=== PATIENT | female | born 1990 | race African-American/Black ===

== ENCOUNTER 2020-01-09 17:09 | Emergency (ER) | payer OTHER ==
[~2020-01-09] VITALS: Ht 154.9 cm; Wt 63.9 kg
[2020-01-09] MEDS ORDERED: lidocaine patch (17:21)
[2020-01-09] MEDS ORDERED: prenatal vit (17:21)
--- NOTE | 2020-01-09 20:19 | REPVR ---
PROCEDURE INFORMATION: Exam: CT Head Without Contrast Exam date and time: 01/09/2020 8:00 PM Age: 29 years old Clinical indication: Pain; Headache; Additional info: Trauma TECHNIQUE: Imaging protocol: Computed tomography of the head without contrast. Radiation optimization: All CT scans at this facility use at least one of these dose optimization techniques: automated exposure control; mA and/or kV adjustment per patient size (includes targeted exams where dose is matched to clinical indication); or iterative reconstruction. COMPARISON: No relevant prior studies available. FINDINGS: Brain: Normal. No hemorrhage. Unremarkable white matter. No mass effect. Cerebral ventricles: No ventriculomegaly. Bones/joints: Unremarkable. No acute fracture. Paranasal sinuses: Visualized sinuses are unremarkable. No fluid levels. Mastoid air cells: Visualized mastoid air cells are well aerated. Auditory system: Retained cerumen in both external auditory canals. Soft tissues: Unremarkable. IMPRESSION: No acute findings. Electronically signed by: Sheldon Hernandez On 01/09/2020 20:18:41 PM
[2020-01-09 20:32] VITALS: BP 133/79
== END 2020-01-09 20:43 | disposition home or self-care (01) ==
LOC: M ED 17:09
DX: S09.90XA Unspecified injury of head, initial encounter (principal); W22.8XXA Striking against or struck by other objects, initial encounter; Y92.9 Unspecified place or not applicable; Y99.9 Unspecified external cause status; Z88.6 Allergy status to analgesic agent; Z88.8 Allergy status to other drugs, medicaments and biological substances; Z79.899 Other long term (current) drug therapy

== ENCOUNTER 2020-05-13 15:31 | Emergency (ER) | payer OTHER ==
[~2020-05-13] VITALS: Ht 154.9 cm; Wt 65.8 kg
[~2020-05-13 15:31] MED LIST: lidocaine patch; prenatal vit
--- OUTSIDE RECORDS SUMMARY | 2020-05-13 15:37 | CCD | Continuity of Care Document ---
Author Author Lorin BAKER M.D. Organization Unknown Address [address] [place] [address] Phone [phone] Care Team Providers Care Bowling Ball Engraver Name Role Phone Roberto Merritt DO AUT[facility] [phone] Problems Active Problems Provider Date Migraine Uma Baker M.D. Onset: 02/27/2020 Postconcussion syndrome Uma Baker M.D. Onset: 020 Social History Type Date Description Comments Sex Unknown Tobacco Use Start: Unknown Patient has never smoked Allergies, Adverse Reactions, Alerts Active Allergies Reaction Severity Comments Date Ketorolac Tromethamine 02/26 Demerol 02/27/2020 Dilaudid 02/27/2020 Tramadol 02/27/2020 Triptans 02/27/2020 Dihydroergotamine 02/27/2020 Medications Active Medications SIG Qnty Indications Ordering Provide r Date Prednisone 20mg Tablets take 60mg x2days, then 40mg x2 day, then 20mg x2days, then 10mg x2days. then stop. 13tahelen Baker M.D. 02/27/2020 Amitriptyline HCL 25mg Tablets Take one tablet at bedtime, start with 1/2 tab at bedtime for 1 week then take 1 tab po at bedtime. 30tabs Uma Baker M.D. 02/27/2020 Immunizations Description No Information Available Vital Signs Date Vital Result Comment 02/27/2020 9:55am Respiratory Rate 12 /min Height 61 inches 5'1" Weight 134.00 lb BMI (Body Mass Index) 25.3 kg/m2 [place] Body Weight 105 lb Results Description No Information Available Procedures Description No Information Available Medical Devices Description No Information Available Encounters Type Date Location Provider Dx Diagnosis Office Visit 02/27/2020 9:30a Main office - [place] Uma varela M.D. G43.719 Chronic migraine w/o aura, intractable, w/o stat migr G43.409 Hemiplegic migraine, not int ractable, w/o status migrainosus Assessments Date Code Description Provider 02/27/2020 G43.719 Chronic migraine wit hout aura, intractable, without status migrainosus Uma Baker M.D. 02/27/2020 G43.409 Hemiplegic migraine, not intractable, without status migrainosus Uma Baker M.D. Plan of Treatment Future Appointment(s):* 05/29/2020 2:00 pm - Uma Baker M.D. at Main office - [place] Functional Status Description No Information Available Mental Status Description No Information Available Referrals Refer to Dr Reason for Referral Status Appt Date Uma Baker M.D. Created [address] [place] [address] [phone]
--- OUTSIDE RECORDS SUMMARY | 2020-05-13 15:37 | CCD | Continuity of Care Document ---
Author Author Lorin BAKER M.D. Organization Unknown Address [address] [place] [address] Phone [phone] Care Team Providers Care Insurance Sales Professional Name Role Phone Roberto Merritt DO AUTM [phone] Problems Active Problems Provider Date Migraine Uma [...] lb BMI (Body Mass Index) 25.3 kg/m2 [place] Body Weight 105 lb Results Description No Information Available Procedures Description No Information Available Medical Devices Description No Information Available Encounters Description No Information Available Assessments Date Code Description Provider 02/27/2020 G43.719 Chronic migraine wit hout aura, intractable, without status migrainosus Uma Baker M.D. 02/27/2020 G43.409 Hemiplegic migraine, not intractable, without status migrainosus Uma Baker M.D. Plan of Treatment Future Appointment(s):* 05/29/2020 2:00 pm - Uma Baker M.D. at Main office - [place] Functional Status Description No Information Available Mental Status Description No Information Available Referrals Description No Information Available
--- OUTSIDE RECORDS SUMMARY | 2020-05-13 15:37 | CCD ---
Author Author [facility] Organization [facility] Address Unknown Phone Unavailable Care Team Providers Care Supervisor Case Loading Name Role Phone Sharon Zaidi MD Unavailable Unavailable Sharon Zaidi MD Unavailable Unavailable Sharon Zaidi MD Unavailable Unavailable Sharon Zaidi MD Unavailable Unavailable Sharon Zaidi MD Unavailable Unavailable Sharon Zaidi MD Unavailable Unavailable Sharon Zaidi MD Unavailable Unavailable Sharno Zaidi MD Unavailable Unavailable Sharon Zaidi MD Unavailable Unavailable Sharon Zaidi MD Unavailable Unavailable Sharon Zaidi MD Unavailable Unavailable Sharon Zaidi MD Unavailable Unavailable Sharon Zaidi MD Unavailable Unavailable Sharon Zaidi MD Unavailable Unavailable Sharon Zaidi MD Unavailable Unavailable Sharon Zaidi MD Unavailable Unavailable Sharon Zaidi MD Unavailable Unavailable Sharon Zaidi MD Unavailable Unavailable Sharon Zaidi MD Unavailable Unavailable Sharon Zaidi MD Unavailable Unavailable Sharon Zaidi MD Unavailable Unavailable Sharon Zaidi MD Unavailable Unavailable Sharon Zaidi MD Unavailable Unavailable Sharon Zaidi MD Unavailable Unavailable Sharon Zaidi MD Unavailable Unavailable Sharon Zaidi MD Unavailable Unavailable Sharon Zaidi MD Unavailable Unavailable Sharon Zaidi MD Unavailable Unavailable Sharon Zaidi MD Unavailable Unavailable Sharon Zaidi MD Unavailable Unavailable Sharon Zaidi MD Unavailable Unavailable Sharon Zaidi MD Unavailable Unavailable Sharon Zaidi MD Unavailable Unavailable Sharon Zaidi MD Unavailable Unavailable Sharon Zaidi MD Unavailable Unavailable Sharon Zaidi MD Unavailable Unavailable Sharon Zaidi MD Unavailable Unavailable Sharon Zaidi MD Unavailable Unavailable Sharon Zaidi MD Unavailable Unavailable Sharon Zaidiah Unavailable Unavailable Sharon Zaidi MD Unavailable Unavailable Sharon Zaidi MD Unavailable Unavailable Sharon Zaidi MD Unavailable Unavailable Sharon Zaidi MD Unavailable Unavailable Sharon Zaidi MD Unavailable Unavailable Sharon Zaidi MD Unavailable Unavailable Sharon Zaidi MD Unavailable Unavailable Sharon Zaidi MD Unavailable Unavailable Sharon Zaidi MD Unavailable Unavailable Sharon Zaidi MD Unavailable Unavailable Sharon Zaidi MD Unavailable Unavailable Sharon Zaidi MD Unavailable Unavailable Sharon Zaidi MD Unavailable Unavailable Sharon Zaidi MD Unavailable Unavailable Sharon Zaidi MD Unavailable Unavailable Sharon Zaidi MD Unavailable Unavailable Sharon Zaidi MD Unavailable Unavailable Sharon Zaidi MD Unavailable Unavailable Sharon Zaidi MD Unavailable Unavailable Sharon Zaidi MD Unavailable Unavailable Sharon Zaidi MD Unavailable Unavailable Sharon Zaidi MD Unavailable Unavailable Sharon Zaidi MD Unavailable Unavailable Sharon Zaidi MD Unavailable Unavailable Sharon Zaidi MD Unavailable Unavailable Sharon Zaidi MD Unavailable Unavailable Sharon Zaidi MD Unavailable Unavailable Sharon Zaidi MD Unavailable Unavailable Sharon Zaidi MD Unavailable Unavailable Sharon Zaidi MD Unavailable Unavailable Sharon Zaidi MD Unavailable Unavailable Sharon Zaidi MD Unavailable Unavailable Sharon Zaidi MD Unavailable Unavailable Sharon Zaidi MD Unavailable Unavailable Sharon Zaidi MD Unavailable Unavailable Sharon Zaidi MD Unavailable Unavailable Re-disclosure Warning The records that you are about to access may contain information from federally-assisted alcohol or drug abuse programs. If such information is present, then the following federally mandated warning applies: This information has been disclosed to you from records protected by federal confidentiality rules (42 CFR part 2). The federal rules prohibit you from making any further disclosure of this information unless further disclosure is expressly permitted by the written consent of the person to whom it pertains or as otherwise permitted by 42 CFR part 2. A general authorization for the release of medical or other information is NOT sufficient for this purpose. The Federal rules restrict any use of the information to criminally investigate or prosecute any alcohol or drug abuse patient.The records that you are about to access may contain highly sensitive health information, the redisclosure of which is protected by Article 27-F of the [facility] Public Health law. If you continue you may have access to information: Regarding HIV / AIDS; Provided by facilities licensed or operated by the [facility] Office of Mental Health; or Provided by the [facility] Office for People With Developmental Disabilities. If such information is present, then the following [facility] mandated warning applies: This information has been disclosed to you from confidential records which are protected by state law. State law prohibits you from making any further disclosure of this information without the specific written consent of the person to whom it pertains, or as otherwise permitted by law. Any unauthorized further disclosure in violation of state law may result in a fine or mcfp sentence or both. A general authorization for the release of medical or other information is NOT sufficient authorization for further disc losure. Encounters Encounter Providers Location Date Indications Data Source(s ) Outpatient Attender: Uma Zaidi MD [facility] office [facility] 02/27/2020 08:30:00 AM EST [facility] ([facility], ) Medications Medication Brand Name Start Date Product Form Dose Route Admi nistrative Instructions Pharmacy Instructions Status Indications Reaction Description Data Source(s) Prednisone 20 MG Oral Tablet Prednisone 02/27/2020 12:00:00 AM EST active [facility] ([facility], ) Amitriptyline Hydrochloride 25 MG Oral Tablet Amitriptyline HCL 02/27/2020 12:00:00 AM EST active [facility] ([facility], ) Insurance Providers Payer name Policy type / Coverage type Policy ID Covered democrat ID Covered democrat's relationship to rangel Policy Rangel Plan Information [facility] ACTIVE DUTY [id number] SP [id number] [employer] [facility] REG O [id number] S [id number] Problems, Conditions, and Diagnoses Code Display Name Description Problem Type Effective Dates Data Source(s) 63374658 Postconcussion syndrome Postconcussion syndrome Proble m 02/27/2020 12:00:00 AM EST [facility] ([facility], ) [id number] Migraine Migraine Problem 02/27/2020 12:00:00 AM ES T [facility] ([facility], ) Vital Signs ID Date Data Source UNK Name Value Range Interpretation Code Description Data Source(s) [place] body weight 105 [lb_av] 105 [lb_av] [facility] ([facility], ) Body mass index (BMI) [Ratio] 25.3 kg/m2 25.3 k g/m2 [facility] ([facility], ) Body weight 134.00 [lb_av] 134.00 [lb_av] [facility] ([facility] ) Body height 61 [in_i] 61 [in_i] [facility] ([facility], ) 5'1" Respiratory rate 12 /min 12 /min [facility] ( [facility], )
--- OUTSIDE RECORDS SUMMARY | 2020-05-13 16:58 | CCD ---
Author Author [facility] Organization [facility] Address Unknown Phone Unavailable Care Team Providers Care Kennel Staff Member Name Role Phone Sharon Zaidi MD Unavailable [...] is protected by Article 27-F of the [facility] Public Health law. If you continue you may have access to information: Regarding HIV / AIDS; Provided by facilities licensed or operated by the [facility] Office of Mental Health; or Provided by the [facility] Office for People With Developmental Disabilities. If such information is present, then the following [facility] mandated warning applies: This information [...] law may result in a fine or long term sentence or both. A general authorization for the release of medical or other information is NOT sufficient authorization for further disc losure. Encounters Encounter Providers Location Date Indications Data Source(s ) Outpatient Attender: Uma Zaidi MD [facility] 02/27/2020 08:30:00 AM EST [facility] ([facility], ) Medications Medication Brand Name Start Date Product Form Dose Route Admi nistrative Instructions Pharmacy Instructions Status Indications Reaction Description Data Source(s) Prednisone 20 MG Oral Tablet Prednisone 02/27/2020 12:00:00 AM EST active [facility] ([facility], ) Amitriptyline Hydrochloride 25 MG Oral Tablet Amitriptyline HCL 02/27/2020 12:00:00 AM EST active [facility] ([facility], ) Insurance Providers Payer name Policy type / Coverage type Policy ID Covered green party ID Covered green party's relationship to rangel Policy Rangel Plan Information [facility] ACTIVE DUTY [id number] SP [id number] [employer] [facility] REG O [id number] S [id number] Problems, Conditions, and Diagnoses Code Display Name Description Problem Type Effective Dates Data Source(s) [id number] Postconcussion syndrome Postconcussion syndrome Proble m 02/27/2020 12:00:00 AM EST [facility] ([facility], ) [id number] Migraine Migraine Problem 02/27/2020 12:00:00 AM ES T [facility] ([facility], ) Vital Signs ID Date Data Source UNK Name Value Range Interpretation Code Description Data Source(s) [place] body weight 105 [lb_av] 105 [lb_av] [facility] ([facility], ) Body mass index (BMI) [Ratio] 25.3 kg/m2 25.3 k g/m2 [facility] ([facility], ) Body weight 134.00 [lb_av] 134.00 [lb_av] [facility] ([facility], ) Body height 61 [in_i] 61 [in_i] [facility] ([facility], ) 5'1" Respiratory rate 12 /min 12 /min [facility] ( [facility], )
--- NOTE | 2020-05-13 17:54 | REPVR ---
PROCEDURE INFORMATION: Exam: US Nonobstetric Pelvis; Complete Exam date and time: 05/13/2020 5:34 PM Age: 30 years old Clinical indication: Pelvic pain; Additional info: Acute left inuginal pain TECHNIQUE: Imaging protocol: Transabdominal pelvic nonobstetric ultrasound. Complete exam. Real time ultrasound with image documentation. COMPARISON: No relevant prior studies available. FINDINGS: Uterus/cervix: The uterus measures 8.6 x 3.3 by 5.4 cm. The endometrial stripe measures 0.72 cm. Right adnexa: The right ovary measures 3.2 x 3.5 x 1.7 cm. Arterial blood flow demonstrated in the right ovary on color Doppler examination. 1.4 cm cyst or follicle seen in the right ovary. Left adnexa: The left ovary measures 2.6 by 3 x by 3 cm. Arterial blood flow demonstrated in the left ovary on pulse Doppler examination. Intraperitoneal space: No intraperitoneal fluid. Urinary bladder: Suboptimal distention noted of the bladder which limits visualization of the uterus and the adnexa IMPRESSION: Normal ultrasound of the pelvis for a menstruating female Electronically signed by: Asiya Najera On 05/13/2020 17:53:49 PM
[2020-05-13] MEDS ORDERED: ACETAMINOPHEN TAB 650MG DOSE (2X325MG) PO ONE (18:00)
[2020-05-13 18:54] VITALS: BP 121/81
== END 2020-05-13 18:55 | disposition home or self-care (01) ==
LOC: M ED 15:31
DX: Z87.828 Personal history of other (healed) physical injury and trauma (principal); Z87.448 Personal history of other diseases of urinary system; Z79.899 Other long term (current) drug therapy; Z88.5 Allergy status to narcotic agent; Z88.8 Allergy status to other drugs, medicaments and biological substances

== ENCOUNTER 2020-06-24 12:06 | Emergency (ER) | payer OTHER ==
[~2020-06-24] VITALS: Ht 154.9 cm; Wt 65.2 kg
[2020-06-24] MEDS ORDERED: TOPI25TA10 PO (12:23)
[2020-06-24 12:54] LABS: BASO % 0.4 % (0.0-1.0); EOS % 0.4 % (0.0-3.0); HEMATOCRIT 35.6 % (36.0-47.0); HEMOGLOBIN 11.3 g/dl (12.0-15.5); LYMPH # 1.8 10^3/uL (1.5-5.0); LYMPH % 35.8 % (24.0-44.0); MEAN CORPUSCULAR HEMOGLOBIN 26.8 pg (27.0-33.0); MEAN CORPUSCULAR HGB CONC 31.7 g/dl (32.0-36.5); MEAN CORPUSCULAR VOLUME 84.6 fl (80.0-96.0); MONO # 0.4 10^3/uL (0.0-0.8); MONO % 7.1 % (2.0-8.0); NEUTROPHILS # 2.8 10^3/uL (1.5-8.5); NEUTROPHILS % 56.1 % (36.0-66.0); PLATELET COUNT, AUTOMATED 207 10^3/uL (150-450); RED BLOOD COUNT 4.21 10^6/uL (4.00-5.40); WHITE BLOOD COUNT 4.9 10^3/uL (4.0-10.0)
[2020-06-24 13:23] LABS: ALT/SGPT 18 U/L (12-78); BILIRUBIN,DIRECT 0.2 MG/DL (0.0-0.2); BILIRUBIN,TOTAL 0.6 MG/DL (0.2-1.0); BLOOD UREA NITROGEN 12 MG/DL (7-18); CALCIUM LEVEL 9.1 MG/DL (8.5-10.1); CARBON DIOXIDE LEVEL 26 MEQ/L (21-32); CHLORIDE LEVEL 109 MEQ/L (98-107); GLOMERULAR FILTRATION RATE > 60.0 (>60); GLUCOSE, FASTING 87 MG/DL (70-100); HCG, SERUM QUANTITATIVE 8 MIU/ML; LIPASE 114 U/L (73-393); POTASSIUM SERUM 3.6 MEQ/L (3.5-5.1); SODIUM LEVEL 140 MEQ/L (136-145); TOTAL PROTEIN 7.7 GM/DL (6.4-8.2)
--- NOTE | 2020-06-24 13:27 | REP ---
INDICATION: VAGINAL BLEEDING COMPARISON: None. TECHNIQUE: Transabdominal and transvaginal 1st trimester obstetrical ultrasound with color Doppler evaluation. FINDINGS: Anteverted uterus measures 7.4 x 3.9 x 5.2 cm. The endometrial complex measures 5 mm thickness. No intrauterine identified. Bilateral ovaries are normal. Right ovary measures 3.9 x 1.9 x 1.8 cm and includes 1.4 cm physiologic cyst/follicle. Left ovary measures 2.9 x 2.1 x 3.0 cm. Small amount of pelvic free fluid is nonspecific. No adnexal mass lesion. IMPRESSION: Anteverted uterus without decidual reaction or intrauterine . No adnexal mass lesion. Differential diagnosis includes early as well as missed and much less likely ectopic cannot be excluded. <Electronically signed by El Arvizu > 06/24/20 [id number]
[2020-06-24 13:58] VITALS: BP 120/78
== END 2020-06-24 13:59 | disposition home or self-care (01) ==
LOC: M ED 12:06
DX: O20.0 Threatened abortion (principal); Z87.42 Personal history of other diseases of the female genital tract; Z87.440 Personal history of urinary (tract) infections; Z79.899 Other long term (current) drug therapy; Z88.5 Allergy status to narcotic agent; Z3A.01 Less than 8 weeks gestation of pregnancy

== ENCOUNTER → 2020-06-26 | Outpatient (CLI) | payer OTHER ==
[~2020-06-26] MED LIST changes: +TOPI25TA10 PO
== END ==
LOC: M LAB 09:13
PROVIDERS: ATTEND Physician Assistant
DX: N93.9 Abnormal uterine and vaginal bleeding, unspecified (principal)

== ENCOUNTER 2020-07-18 13:25 | Emergency (ER) | payer OTHER ==
[~2020-07-18] VITALS: Ht 154.9 cm; Wt 65.9 kg
[2020-07-18 15:29] LABS: BASO # 0.1 10^3/uL (0.0-0.2); BASO % 0.8 % (0.0-1.0); EOS % 0.6 % (0.0-3.0); HEMATOCRIT 38.9 % (36.0-47.0); HEMOGLOBIN 12.2 g/dl (12.0-15.5); LYMPH # 1.8 10^3/uL (1.5-5.0); LYMPH % 28.9 % (24.0-44.0); MEAN CORPUSCULAR HEMOGLOBIN 26.7 pg (27.0-33.0); MEAN CORPUSCULAR HGB CONC 31.4 g/dl (32.0-36.5); MEAN CORPUSCULAR VOLUME 85.1 fl (80.0-96.0); MONO # 0.5 10^3/uL (0.0-0.8); MONO % 7.6 % (2.0-8.0); NEUTROPHILS # 3.9 10^3/uL (1.5-8.5); NEUTROPHILS % 61.9 % (36.0-66.0); PLATELET COUNT, AUTOMATED 194 10^3/uL (150-450); RED BLOOD COUNT 4.57 10^6/uL (4.00-5.40); WHITE BLOOD COUNT 6.3 10^3/uL (4.0-10.0)
[2020-07-18 16:07] LABS: BLOOD UREA NITROGEN 13 MG/DL (7-18); CALCIUM LEVEL 9.5 MG/DL (8.5-10.1); CARBON DIOXIDE LEVEL 27 MEQ/L (21-32); CHLORIDE LEVEL 107 MEQ/L (98-107); CREATININE FOR GFR 0.68 MG/DL (0.55-1.30); GLOMERULAR FILTRATION RATE > 60.0 (>60); GLUCOSE, FASTING 92 MG/DL (70-100); POTASSIUM SERUM 3.9 MEQ/L (3.5-5.1); SODIUM LEVEL 138 MEQ/L (136-145)
[2020-07-18 16:12] LABS: HCG, SERUM QUALITATIVE NEGATIVE (NEGATIVE)
[2020-07-18] MEDS ORDERED: METOCLOPRAMIDE 10 MG TAB PO ONE (16:45)
[2020-07-18 17:40] LABS: HEMOGLOBIN A1c 5.5 %
--- NOTE | 2020-07-18 17:41 | REP ---
INDICATION: nausea vomiting. COMPARISON: None. TECHNIQUE: PA view chest, supine and erect views of abdomen. FINDINGS: There is no evidence of free intraperitoneal air, ileus or obstruction. No dilated bowel loops are seen. There are multiple phleboliths in the pelvis. The visualized osseous structures are unremarkable. No infiltrate is seen in either lung. The heart and mediastinum are within normal limits. IMPRESSION: Negative abdominal series. <Electronically signed by Misael Wilcox > 07/18/20 [id number]
[2020-07-18] MEDS ORDERED: REGL10TA6 PO (18:19)
[2020-07-18 18:25] VITALS: BP 133/94
== END 2020-07-18 18:27 | disposition home or self-care (01) ==
LOC: M ED 13:25
DX: R42 Dizziness and giddiness (principal); R11.2 Nausea with vomiting, unspecified; R51.9 Headache, unspecified; D50.9 Iron deficiency anemia, unspecified; Z88.5 Allergy status to narcotic agent; Z88.8 Allergy status to other drugs, medicaments and biological substances

== ENCOUNTER → 2020-11-12 | Outpatient (CLI) | payer OTHER ==
[~2020-11-12] MED LIST changes: +ISOVUE-370 76% 100ML VIAL As Ordered ONE; +KETO10TAB PO; +ONDA4TAB6 PO; +REGL10TA6 PO
--- NOTE | 2020-11-12 13:29 | REP ---
INDICATION: INFERTILITY. COMPARISON: None. TECHNIQUE: The cervix was catheterized by the referring clinician, who injected contrast. I performed fluoroscopy and obtained images. FINDINGS: Uterine contour is unremarkable. No definite filling defect is seen within the uterus. Bilateral lymphatic visualization is noted. There does appear to be free intraperitoneal spillage on the right side. No spillage is seen on the left side. IMPRESSION: Findings compatible with a patent right fallopian tube. No definite evidence of intraperitoneal spillage on the left suggesting non patent left fallopian tube. Fluoroscopy time 0.9 minutes. <Electronically signed by Misael Wilcox > 11/12/20 [id number]
== END ==
LOC: M RADPRO 11:54
PROVIDERS: ATTEND Obstetrics & Gynecology
DX: N97.9 Female infertility, unspecified (principal)
CPT/HCPCS: 58340; 74740; Q9967

== ENCOUNTER 2020-11-13 18:49 | Emergency (ER) | payer OTHER ==
[~2020-11-13] VITALS: Ht 154.9 cm; Wt 70.2 kg
[~2020-11-13 18:49] MED LIST changes: -ISOVUE-370 76% 100ML VIAL As Ordered ONE; -KETO10TAB PO; -ONDA4TAB6 PO
[2020-11-14 00:37] LABS: BASO % 0.5 % (0.0-1.0); EOS # 0.1 10^3/uL (0.0-0.5); EOS % 1.1 % (0.0-3.0); HEMATOCRIT 37.1 % (36.0-47.0); HEMOGLOBIN 11.8 g/dl (12.0-15.5); LYMPH # 2.7 10^3/uL (1.5-5.0); LYMPH % 36.2 % (24.0-44.0); MEAN CORPUSCULAR HEMOGLOBIN 26.8 pg (27.0-33.0); MEAN CORPUSCULAR HGB CONC 31.8 g/dl (32.0-36.5); MEAN CORPUSCULAR VOLUME 84.1 fl (80.0-96.0); MONO # 0.4 10^3/uL (0.0-0.8); MONO % 5.6 % (2.0-8.0); NEUTROPHILS # 4.2 10^3/uL (1.5-8.5); NEUTROPHILS % 56.3 % (36.0-66.0); PLATELET COUNT, AUTOMATED 229 10^3/uL (150-450); RED BLOOD COUNT 4.41 10^6/uL (4.00-5.40); WHITE BLOOD COUNT 7.4 10^3/uL (4.0-10.0)
[2020-11-14] MEDS ORDERED: ONDANSETRON 4MG/2ML VIAL IV ONE (00:50)
[2020-11-14] MEDS ORDERED: ONDANSETRON 4 MG ORAL DISINTEGRATING TAB PO ONE (01:00)
[2020-11-14 01:10] LABS: HCG, SERUM QUALITATIVE NEGATIVE (NEGATIVE)
[2020-11-14 01:13] LABS: ALBUMIN 4.1 GM/DL (3.2-5.2); ALT/SGPT 26 U/L (12-78); BILIRUBIN,TOTAL 0.3 MG/DL (0.2-1.0); BLOOD UREA NITROGEN 14 MG/DL (7-18); CALCIUM LEVEL 8.9 MG/DL (8.5-10.1); CARBON DIOXIDE LEVEL 29 MEQ/L (21-32); CHLORIDE LEVEL 104 MEQ/L (98-107); CREATININE FOR GFR 0.63 MG/DL (0.55-1.30); GLOMERULAR FILTRATION RATE > 60.0 (>60); GLUCOSE, FASTING 85 MG/DL (70-100); POTASSIUM SERUM 3.7 MEQ/L (3.5-5.1); SODIUM LEVEL 140 MEQ/L (136-145); TOTAL PROTEIN 7.5 GM/DL (6.4-8.2)
--- NOTE | 2020-11-14 01:31 | REPVR ---
PROCEDURE INFORMATION: Exam: US Pelvis Complete, Transabdominal and US Pelvis, Transvaginal Exam date and time: 11/14/2020 12:21 AM Age: 30 years old Clinical indication: Pelvic pain; Prior surgery; Surgery date: Post-operative (0-2 days); Surgery type: Hysterosalpingogram; Additional info: Pelvic pain, S/P procedure TECHNIQUE: Imaging protocol: Real-time transabdominal and transvaginal pelvic ultrasound (complete) with image documentation. Transvaginal imaging was used for better evaluation of the endometrium, adnexa, and/or cervix. COMPARISON: US PELVIC NON-OB COMPLETE 05/13/2020 5:25 PM FINDINGS: Uterus/cervix: The uterus measures 7.6 cm in its cephalocaudad dimension and 3.0 x 4.5 cm in its AP and lateral dimensions. The endometrium measures 3 mm. Right adnexa: The right ovary measures 4.1 x 2.5 x 2.9 cm with normal color flow and Doppler waveforms. There is a small complex hypoechoic area measuring 2.3 x 1.3 x 1.9 cm. Left adnexa: The left ovary measures 3.6 x 2.1 x 2.6 cm with small follicles and color flow and normal Doppler waveforms. Intraperitoneal space: No intraperitoneal fluid. Urinary bladder: The urinary bladder is not seen. IMPRESSION: 1. Right ovarian complex cyst, probably hemorrhagic measuring 2.3 x 1.3 x 1.9 cm. 2. Otherwise negative pelvic sonogram. Bilateral ovarian blood flow is noted. Electronically signed by: Wilberto Mcmillan On 11/14/2020 01:30:10 AM
[2020-11-14] MEDS ORDERED: ONDA4TAB6 PO (02:05)
[2020-11-14] MEDS ORDERED: KETO10TAB PO (02:05)
[2020-11-14] MEDS ORDERED: PERCOCET 5MG/325MG TAB PO ONE (02:15)
[2020-11-14] MEDS ORDERED: OXYCODONE/APAP 5MG/325MG(BULK FOR ED) 1 TABLET PO ONE (02:15)
[2020-11-14 02:36] VITALS: BP 118/59
== END 2020-11-14 02:37 | disposition home or self-care (01) ==
LOC: M ED 18:49
DX: N83.201 Unspecified ovarian cyst, right side (principal); Z88.5 Allergy status to narcotic agent; Z88.8 Allergy status to other drugs, medicaments and biological substances
CPT/HCPCS: 76856; 80053; 81001; 84703; 85025; 99284; Q0162

== ENCOUNTER 2020-12-06 12:01 | Emergency (ER) | payer OTHER ==
[~2020-12-06] VITALS: Ht 154.9 cm; Wt 72.2 kg
[~2020-12-06 12:01] MED LIST changes: +KETO10TAB PO; +ONDA4TAB6 PO
[2020-12-06] MEDS ORDERED: METF500T13 PO (12:11)
--- NOTE | 2020-12-06 18:19 | REP ---
INDICATION: right pelvic pain; r/o torsion COMPARISON: None. TECHNIQUE: Transabdominal pelvic ultrasound followed by transvaginal examination for better evaluation of the endometrium and adnexa with color Doppler evaluation of the ovaries. FINDINGS: Bladder is unremarkable and measures 8.4 x 3.5 x 6.2 cm. Normal anteverted uterus measures 8.3 x 3.8 x 4.4 cm. The endometrial complex measures 7 mm thickness. Incidental 6 mm nabothian cyst noted and scar suggesting prior Caesarean section. Bilateral ovaries are normal in appearance and vascularity without evidence for torsion. Right ovary measures 3.6 x 1.9 x 2.3 cm and includes 1.7 cm presumed physiologic cyst/dominant follicle; R I = 0.66. Left ovary measures 3.8 x 2.3 x 2.4 cm with multiple follicles; R I = 0.56. No pelvic fluid or adnexal mass lesion. IMPRESSION: Essentially normal pelvic ultrasound. <Electronically signed by El Arvizu > 12/06/20 [id number]
[2020-12-06] MEDS ORDERED: ONDA4TAB6 PO (18:32)
[2020-12-06 18:55] VITALS: BP 129/72
== END 2020-12-06 18:58 | disposition home or self-care (01) ==
LOC: M ED 12:01
DX: N94.6 Dysmenorrhea, unspecified (principal); R11.0 Nausea; Z87.42 Personal history of other diseases of the female genital tract; Z88.5 Allergy status to narcotic agent; Z88.8 Allergy status to other drugs, medicaments and biological substances

== ENCOUNTER 2021-05-22 19:24 | Emergency (ER) | payer OTHER ==
[~2021-05-22] VITALS: Ht 154.9 cm; Wt 67.8 kg
[~2021-05-22 19:24] MED LIST changes: +METF500T13 PO
[2021-05-22] MEDS ORDERED: METF850T4 (19:34)
[2021-05-22 22:20] VITALS: BP 120/69
== END 2021-05-22 22:32 | disposition left against medical advice (07) ==
LOC: M ED 19:24
DX: Z53.21 Procedure and treatment not carried out due to patient leaving prior to being seen by health care provider (principal)

== ENCOUNTER 2021-09-07 18:21 | Emergency (ER) | payer OTHER ==
[~2021-09-07] VITALS: Ht 154.9 cm; Wt 67.3 kg
[~2021-09-07 18:21] MED LIST changes: +METF850T4
[2021-09-07 20:33] LABS: BASO % 0.7 % (0.0-1.0); EOS # 0.1 10^3/uL (0.0-0.5); EOS % 0.8 % (0.0-3.0); HEMOGLOBIN 11.5 g/dl (12.0-15.5); LYMPH # 1.8 10^3/uL (1.5-5.0); LYMPH % 29.5 % (24.0-44.0); MEAN CORPUSCULAR HEMOGLOBIN 26.7 pg (27.0-33.0); MEAN CORPUSCULAR HGB CONC 31.9 g/dl (32.0-36.5); MEAN CORPUSCULAR VOLUME 83.7 fl (80.0-96.0); MONO # 0.4 10^3/uL (0.0-0.8); MONO % 6.4 % (2.0-8.0); NEUTROPHILS # 3.7 10^3/uL (1.5-8.5); NEUTROPHILS % 62.4 % (36.0-66.0); PLATELET COUNT, AUTOMATED 203 10^3/uL (150-450)
[2021-09-07 21:05] LABS: HCG, SERUM QUALITATIVE NEGATIVE (NEGATIVE)
[2021-09-07 21:06] LABS: ALBUMIN 3.9 GM/DL (3.2-5.2); ALT/SGPT 19 U/L (12-78); BILIRUBIN,TOTAL 0.5 MG/DL (0.2-1.0); BLOOD UREA NITROGEN 9 MG/DL (7-18); CALCIUM LEVEL 8.8 MG/DL (8.5-10.1); CARBON DIOXIDE LEVEL 26 MEQ/L (21-32); CHLORIDE LEVEL 108 MEQ/L (98-107); CREATININE FOR GFR 0.68 MG/DL (0.55-1.30); GLOMERULAR FILTRATION RATE > 60.0 (>60); GLUCOSE, FASTING 83 MG/DL (70-100); LIPASE 179 U/L (73-393); POTASSIUM SERUM 3.7 MEQ/L (3.5-5.1); SODIUM LEVEL 139 MEQ/L (136-145); TOTAL PROTEIN 7.4 GM/DL (6.4-8.2)
[2021-09-07 21:51] VITALS: BP 116/69
== END 2021-09-07 21:59 | disposition home or self-care (01) ==
LOC: M ED 18:21
DX: N83.292 Other ovarian cyst, left side (principal); Z88.6 Allergy status to analgesic agent

== ENCOUNTER 2022-01-30 15:16 | Emergency (ER) | payer OTHER, SELFPAY ==
[~2022-01-30] VITALS: Ht 157.5 cm; Wt 66.6 kg
[2022-01-30] MEDS ORDERED: MULTTAB20 PO (15:21)
[2022-01-30 16:33] LABS: BASO # 0.1 10^3/uL (0.0-0.2); BASO % 0.4 % (0.0-1.0); EOS % 0.1 % (0.0-3.0); HEMATOCRIT 39.5 % (36.0-47.0); HEMOGLOBIN 12.5 g/dl (12.0-15.5); LYMPH # 1.7 10^3/uL (1.5-5.0); LYMPH % 12.5 % (24.0-44.0); MEAN CORPUSCULAR HEMOGLOBIN 26.7 pg (27.0-33.0); MEAN CORPUSCULAR HGB CONC 31.6 g/dl (32.0-36.5); MEAN CORPUSCULAR VOLUME 84.2 fl (80.0-96.0); MONO # 0.7 10^3/uL (0.0-0.8); MONO % 4.9 % (2.0-8.0); NEUTROPHILS % 81.6 % (36.0-66.0); PLATELET COUNT, AUTOMATED 237 10^3/uL (150-450); RED BLOOD COUNT 4.69 10^6/uL (4.00-5.40); WHITE BLOOD COUNT 13.5 10^3/uL (4.0-10.0)
[2022-01-30 16:57] LABS: ALBUMIN 4.3 GM/DL (3.2-5.2); ALT/SGPT 22 U/L (12-78); BILIRUBIN,DIRECT 0.2 MG/DL (0.0-0.2); BILIRUBIN,TOTAL 1.1 MG/DL (0.2-1.0); BLOOD UREA NITROGEN 11 MG/DL (7-18); CALCIUM LEVEL 9.8 MG/DL (8.5-10.1); CARBON DIOXIDE LEVEL 27 MEQ/L (21-32); CHLORIDE LEVEL 104 MEQ/L (98-107); CREATININE FOR GFR 0.75 MG/DL (0.55-1.30); GLOMERULAR FILTRATION RATE > 60.0 (>60); GLUCOSE, FASTING 83 MG/DL (70-100); LIPASE 100 U/L (73-393); SODIUM LEVEL 136 MEQ/L (136-145); TOTAL PROTEIN 8.1 GM/DL (6.4-8.2)
[2022-01-30 17:11] LABS: HCG, SERUM QUALITATIVE NEGATIVE (NEGATIVE)
[2022-01-30] MEDS ORDERED: ISOVUE-370 76% 100ML VIAL As Ordered ONE (17:43)
[2022-01-30 19:14] VITALS: BP 115/79
== END 2022-01-30 19:15 | disposition home or self-care (01) ==
LOC: M ED 15:16
DX: R10.2 Pelvic and perineal pain (principal); D50.9 Iron deficiency anemia, unspecified; Z87.442 Personal history of urinary calculi; Z88.5 Allergy status to narcotic agent; Z88.8 Allergy status to other drugs, medicaments and biological substances

== ENCOUNTER 2022-04-21 00:05 | Emergency (ER) | payer OTHER ==
[~2022-04-21] VITALS: Ht 154.9 cm; Wt 66.8 kg
[~2022-04-21 00:05] MED LIST changes: +MULTTAB20 PO
[2022-04-21 00:54] LABS: BASO % 0.5 % (0.0-1.0); EOS # 0.1 10^3/uL (0.0-0.5); EOS % 0.6 % (0.0-3.0); HEMATOCRIT 36.1 % (36.0-47.0); HEMOGLOBIN 11.3 g/dl (12.0-15.5); LYMPH # 1.8 10^3/uL (1.5-5.0); LYMPH % 21.8 % (24.0-44.0); MEAN CORPUSCULAR HEMOGLOBIN 26.2 pg (27.0-33.0); MEAN CORPUSCULAR HGB CONC 31.3 g/dl (32.0-36.5); MEAN CORPUSCULAR VOLUME 83.8 fl (80.0-96.0); MONO # 0.5 10^3/uL (0.0-0.8); MONO % 5.4 % (2.0-8.0); NEUTROPHILS % 71.2 % (36.0-66.0); PLATELET COUNT, AUTOMATED 202 10^3/uL (150-450); RED BLOOD COUNT 4.31 10^6/uL (4.00-5.40); WHITE BLOOD COUNT 8.4 10^3/uL (4.0-10.0)
[2022-04-21 01:12] LABS: LIPASE 36 U/L (12-53)
[2022-04-21 01:14] LABS: ALBUMIN 3.9 G/DL (3.2-5.2); ALKALINE PHOSPHATASE 72 U/L (46-116); ALT/SGPT 19 U/L (7.0-40); AST/SGOT 20 U/L (<34); BILIRUBIN,DIRECT 0.1 MG/DL (<0.4); BILIRUBIN,TOTAL 0.4 MG/DL (0.3-1.2); BLOOD UREA NITROGEN 14 MG/DL (9-23); CARBON DIOXIDE LEVEL 23 MMOL/L (20-31); CHLORIDE LEVEL 106 MMOL/L (98-107); CREATININE FOR GFR 0.65 MG/DL (0.55-1.30); GLOMERULAR FILTRATION RATE > 60.0 (>60); GLUCOSE, FASTING 96 MG/DL (60-100); SODIUM LEVEL 138 MMOL/L (136-145); TOTAL PROTEIN 6.9 G/DL (5.7-8.2)
[2022-04-21 01:16] LABS: HCG, SERUM QUALITATIVE NEGATIVE (NEGATIVE)
[2022-04-21 10:04] VITALS: BP 101/67
[2022-04-21 11:41] LABS: GC DNA AMPLIFICATION NEGATIVE (NEGATIVE)
== END 2022-04-21 10:49 | disposition home or self-care (01) ==
LOC: M ED 00:05
DX: N83.202 Unspecified ovarian cyst, left side (principal); Z88.5 Allergy status to narcotic agent; Z88.8 Allergy status to other drugs, medicaments and biological substances

== ENCOUNTER 2022-04-29 21:17 | Emergency (ER) | payer OTHER ==
[~2022-04-29] VITALS: Ht 154.9 cm; Wt 66.4 kg
[2022-04-29] MEDS ORDERED: PERCOCET 5MG/325MG TAB PO ONE (21:55)
[2022-04-29 22:13] LABS: BASO # 0.1 10^3/uL (0.0-0.2); BASO % 0.6 % (0.0-1.0); EOS # 0.1 10^3/uL (0.0-0.5); EOS % 0.5 % (0.0-3.0); HEMATOCRIT 35.8 % (36.0-47.0); HEMOGLOBIN 11.5 g/dl (12.0-15.5); LYMPH # 2.4 10^3/uL (1.5-5.0); LYMPH % 25.2 % (24.0-44.0); MEAN CORPUSCULAR HEMOGLOBIN 26.3 pg (27.0-33.0); MEAN CORPUSCULAR HGB CONC 32.1 g/dl (32.0-36.5); MEAN CORPUSCULAR VOLUME 81.9 fl (80.0-96.0); MONO # 0.5 10^3/uL (0.0-0.8); MONO % 5.3 % (2.0-8.0); NEUTROPHILS # 6.5 10^3/uL (1.5-8.5); NEUTROPHILS % 68.2 % (36.0-66.0); PLATELET COUNT, AUTOMATED 226 10^3/uL (150-450); RED BLOOD COUNT 4.37 10^6/uL (4.00-5.40); WHITE BLOOD COUNT 9.6 10^3/uL (4.0-10.0)
[2022-04-29] MEDS ORDERED: ONDANSETRON 4MG 2ML VIAL IV ONE (22:40)
[2022-04-29] MEDS ORDERED: ONDANSETRON 4MG 2ML VIAL As Ordered ONE (22:41)
[2022-04-29] MEDS ORDERED: ISOVUE-370 76% 100ML VIAL As Ordered ONE (22:49)
[2022-04-29 23:05] LABS: ALBUMIN 4.1 G/DL (3.2-5.2); BILIRUBIN,DIRECT 0.1 MG/DL (<0.4); BILIRUBIN,TOTAL 0.4 MG/DL (0.3-1.2); TOTAL PROTEIN 7.3 G/DL (5.7-8.2)
[2022-04-29] MEDS ORDERED: NS 1,000 ML IV ONE (23:10)
[2022-04-30] MEDS ORDERED: METR0.759 PV (00:58)
[2022-04-30 01:21] VITALS: BP 128/71
== END 2022-04-30 01:22 | disposition home or self-care (01) ==
LOC: M ED 21:17
DX: N83.202 Unspecified ovarian cyst, left side (principal); N76.0 Acute vaginitis; D50.9 Iron deficiency anemia, unspecified; Z91.09 Other allergy status, other than to drugs and biological substances
CPT/HCPCS: 74177; 76856; 80047; 80076; 83690; 84702; 85025; 87210; 93976; 96361; 96374; 99284; J2405

== ENCOUNTER 2022-12-05 16:30 | Emergency (ER) | payer OTHER ==
[~2022-12-05] VITALS: Ht 154.9 cm; Wt 66.0 kg
[~2022-12-05 16:30] MED LIST changes: +METR0.759 PV
[2022-12-05 23:31] LABS: BASO % 0.5 % (0.0-1.0); EOS % 0.5 % (0.0-3.0); HEMATOCRIT 38.1 % (36.0-47.0); HEMOGLOBIN 12.2 g/dl (12.0-15.5); LYMPH # 2.3 10^3/uL (1.5-5.0); LYMPH % 29.6 % (24.0-44.0); MEAN CORPUSCULAR HEMOGLOBIN 27.1 pg (27.0-33.0); MEAN CORPUSCULAR VOLUME 84.5 fl (80.0-96.0); MONO # 0.4 10^3/uL (0.0-0.8); MONO % 5.1 % (2.0-8.0); NEUTROPHILS # 4.9 10^3/uL (1.5-8.5); PLATELET COUNT, AUTOMATED 218 10^3/uL (150-450); RED BLOOD COUNT 4.51 10^6/uL (4.00-5.40); WHITE BLOOD COUNT 7.7 10^3/uL (4.0-10.0)
[2022-12-05 23:59] LABS: BLOOD UREA NITROGEN 13 MG/DL (9-23); CALCIUM LEVEL 9.4 MG/DL (8.5-10.1); CARBON DIOXIDE LEVEL 23 MMOL/L (20-31); CHLORIDE LEVEL 104 MMOL/L (98-107); CK-MB VALUE MASS < 1.0 NG/ML (<3.6); CREATININE FOR GFR 0.59 MG/DL (0.55-1.30); GLOMERULAR FILTRATION RATE > 60.0 (>60); GLUCOSE, FASTING 81 MG/DL (60-100); POTASSIUM SERUM 4.5 MMOL/L (3.5-5.1); SODIUM LEVEL 138 MMOL/L (136-145)
[2022-12-06] MEDS ORDERED: methocarbamoL 500 MG TAB PO ONE
[2022-12-06 00:01] LABS: CPK CREATINE PHOSPHOKINASE 82 U/L (34-145); MB/CK RELATIVE INDEX 1.21 (< OR =4)
[2022-12-06] MEDS ORDERED: ACETAMINOPHEN 500 MG TAB PO ONE (01:30)
[2022-12-06] MEDS ORDERED: ONDANSETRON 4MG ORAL DISINTEGRATING TAB PO ONE (01:30)
[2022-12-06 02:45] LABS: CK-MB VALUE MASS < 1.0 NG/ML (<3.6); CPK CREATINE PHOSPHOKINASE 109 U/L (34-145); MB/CK RELATIVE INDEX 0.91 (< OR =4)
[2022-12-06] MEDS ORDERED: ISOVUE-370 76% 100ML VIAL As Ordered ONE (02:53)
[2022-12-06 03:01] LABS: HCG, SERUM QUALITATIVE NEGATIVE (NEGATIVE)
[2022-12-06 04:45] VITALS: BP 164/98; TEMP 97.6; O2SAT 100
== END 2022-12-06 04:48 | disposition home or self-care (01) ==
LOC: M ED 16:30
DX: R07.89 Other chest pain (principal); R91.1 Solitary pulmonary nodule; Z88.5 Allergy status to narcotic agent; Z88.6 Allergy status to analgesic agent
CPT/HCPCS: 36415; 71045; 71275; 80048; 82550; 82553; 84484; 84703; 85025; 85379; 93005; 99284; Q9967

== ENCOUNTER 2023-01-25 10:18 | Emergency (ER) | payer OTHER ==
[~2023-01-25] VITALS: Ht 154.9 cm; Wt 66.6 kg
[2023-01-25] MEDS ORDERED: probiotic (10:28)
[2023-01-25 12:07] LABS: BASO % 0.3 % (0.0-1.0); EOS % 0.3 % (0.0-3.0); HEMATOCRIT 35.2 % (36.0-47.0); HEMOGLOBIN 11.5 g/dl (12.0-15.5); LYMPH # 1.4 10^3/uL (1.5-5.0); LYMPH % 18.9 % (24.0-44.0); MEAN CORPUSCULAR HEMOGLOBIN 27.5 pg (27.0-33.0); MEAN CORPUSCULAR HGB CONC 32.7 g/dl (32.0-36.5); MEAN CORPUSCULAR VOLUME 84.2 fl (80.0-96.0); MONO # 0.3 10^3/uL (0.0-0.8); MONO % 4.3 % (2.0-8.0); NEUTROPHILS # 5.5 10^3/uL (1.5-8.5); NEUTROPHILS % 76.1 % (36.0-66.0); PLATELET COUNT, AUTOMATED 237 10^3/uL (150-450); RED BLOOD COUNT 4.18 10^6/uL (4.00-5.40); WHITE BLOOD COUNT 7.2 10^3/uL (4.0-10.0)
[2023-01-25 12:37] LABS: BLOOD UREA NITROGEN 10 MG/DL (9-23); CALCIUM LEVEL 9.1 MG/DL (8.5-10.1); CARBON DIOXIDE LEVEL 25 MMOL/L (20-31); CHLORIDE LEVEL 105 MMOL/L (98-107); CREATININE FOR GFR 0.62 MG/DL (0.55-1.30); GLOMERULAR FILTRATION RATE > 60.0 (>60); GLUCOSE, FASTING 91 MG/DL (60-100); POTASSIUM SERUM 4.2 MMOL/L (3.5-5.1); SODIUM LEVEL 139 MMOL/L (136-145)
[2023-01-25 12:39] LABS: FREE T4 1.07 NG/DL (0.89-1.76); THYROID STIMULATING HORMONE 1.285 uIU/ML (0.55-4.78)
[2023-01-25 13:10] LABS: HCG, SERUM QUANTITATIVE 1787.1 MIU/ML (<4.2)
[2023-01-25 14:20] VITALS: BP 113/66; TEMP 98; O2SAT 99
== END 2023-01-25 14:21 | disposition home or self-care (01) ==
LOC: M ED 10:18
DX: O20.8 Other hemorrhage in early pregnancy (principal); Z3A.01 Less than 8 weeks gestation of pregnancy; Z87.59 Personal history of other complications of pregnancy, childbirth and the puerperium; Z87.448 Personal history of other diseases of urinary system; Z88.5 Allergy status to narcotic agent; Z88.8 Allergy status to other drugs, medicaments and biological substances

== ENCOUNTER → 2023-01-27 | Outpatient (CLI) | payer OTHER ==
[~2023-01-27] MED LIST changes: +probiotic
== END ==
LOC: M LAB 10:11
PROVIDERS: ATTEND Physician Assistant Medical
DX: O46.90 Antepartum hemorrhage, unspecified, unspecified trimester (principal)

== ENCOUNTER → 2023-01-28 | Outpatient (CLI) | payer OTHER | LOC: M WHC 11:15 | PROVIDERS: ATTEND Obstetrics & Gynecology | DX: N83.201 Unspecified ovarian cyst, right side (principal) ==

== ENCOUNTER 2023-05-11 15:15 | Emergency (ER) | payer OTHER ==
[~2023-05-11] VITALS: Ht 154.9 cm; Wt 67.8 kg
[2023-05-11] MEDS ORDERED: ACETAMINOPHEN 500 MG TAB PO ONE (19:50)
[2023-05-11 20:48] LABS: RSV AMPLIFICATION NEGATIVE (NEGATIVE)
[2023-05-11] MEDS ORDERED: ISOVUE-370 76% 100ML VIAL As Ordered ONE (21:24)
[2023-05-11 22:00] VITALS: BP 122/74
[2023-05-11 22:18] VITALS: TEMP 98.6
[2023-05-11 22:30] VITALS: O2SAT 100
== END 2023-05-11 22:56 | disposition home or self-care (01) ==
LOC: M ED 15:15 → EDBD 15:15 → M ED 22:56
DX: Z04.1 Encounter for examination and observation following transport accident (principal); J06.9 Acute upper respiratory infection, unspecified; Z79.899 Other long term (current) drug therapy; Z88.5 Allergy status to narcotic agent; Z88.8 Allergy status to other drugs, medicaments and biological substances
CPT/HCPCS: 72110; 73521; 73564; 73590; 74177; 80047; 84702; 87631; 99284; Q9967

== ENCOUNTER 2023-07-03 17:07 | Emergency (ER) | payer OTHER ==
[~2023-07-03] VITALS: Ht 154.9 cm; Wt 69.8 kg
[2023-07-03] MEDS ORDERED: METR0.759 (17:16)
[2023-07-03 17:57] LABS: BASO % 0.6 % (0.0-1.0); EOS % 0.5 % (0.0-3.0); HEMATOCRIT 35.3 % (36.0-47.0); HEMOGLOBIN 11.1 g/dl (12.0-15.5); LYMPH # 1.6 10^3/uL (1.5-5.0); LYMPH % 24.6 % (24.0-44.0); MEAN CORPUSCULAR HEMOGLOBIN 26.6 pg (27.0-33.0); MEAN CORPUSCULAR HGB CONC 31.4 g/dl (32.0-36.5); MEAN CORPUSCULAR VOLUME 84.7 fl (80.0-96.0); MONO # 0.3 10^3/uL (0.0-0.8); NEUTROPHILS # 4.6 10^3/uL (1.5-8.5); PLATELET COUNT, AUTOMATED 221 10^3/uL (150-450); RED BLOOD COUNT 4.17 10^6/uL (4.00-5.40); WHITE BLOOD COUNT 6.6 10^3/uL (4.0-10.0)
[2023-07-03 18:16] LABS: LIPASE 33 U/L (12-53)
[2023-07-03 18:18] LABS: ALBUMIN 3.7 G/DL (3.2-5.2); ALKALINE PHOSPHATASE 65 U/L (46-116); ALT/SGPT 18 U/L (7.0-40); AST/SGOT 15 U/L (<34); BILIRUBIN,DIRECT 0.1 MG/DL (<0.4); BILIRUBIN,TOTAL 0.4 MG/DL (0.3-1.2); BLOOD UREA NITROGEN 10 MG/DL (9-23); CALCIUM LEVEL 9.2 MG/DL (8.5-10.1); CARBON DIOXIDE LEVEL 27 MMOL/L (20-31); CHLORIDE LEVEL 107 MMOL/L (98-107); CREATININE FOR GFR 0.67 MG/DL (0.55-1.30); GLOMERULAR FILTRATION RATE > 60.0 (>60); GLUCOSE, FASTING 97 MG/DL (60-100); POTASSIUM SERUM 3.8 MMOL/L (3.5-5.1); SODIUM LEVEL 135 MMOL/L (136-145); TOTAL PROTEIN 6.8 G/DL (5.7-8.2)
[2023-07-03 18:23] LABS: HCG, SERUM QUALITATIVE NEGATIVE (NEGATIVE)
[2023-07-03] MEDS: NORCO, ANEXSIA 5/325MG TABLET (HYDROcodone/ACETAMINOPHEN) PO ONE (19:56)
[2023-07-03 22:37] VITALS: BP 128/80; TEMP 98.5; O2SAT 100
[2023-07-03 23:29] LABS: Trichomonas vaginalis (AMP) NOT DETECTED (NEGATIVE)
[2023-07-03 23:52] LABS: GC DNA AMPLIFICATION NEGATIVE (NEGATIVE)
== END 2023-07-03 23:05 | disposition home or self-care (01) ==
LOC: M ED 17:07
DX: R10.30 Lower abdominal pain, unspecified (principal); K21.9 Gastro-esophageal reflux disease without esophagitis; Z79.899 Other long term (current) drug therapy; Z88.8 Allergy status to other drugs, medicaments and biological substances